=== PATIENT | female | born 1985 | race African-American/Black ===

== ENCOUNTER 2024-05-03 10:22 | Emergency (ER) | payer OTHER, SELFPAY ==
[2024-05-03 10:26] VITALS: BP 135/99; PULSE 87; RESP 17; TEMP 36.6; O2SAT 99
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
[2024-05-03] MEDS: IBUPROFEN 400 MG TABLET PO (10:48)
[2024-05-03] MEDS: ACETAMINOPHEN 325 MG TABLET 650 MG PO (10:48)
[2024-05-03] MEDS: LIDOCAINE 5% PATCH 1 PATCH TRANSDERM (10:49)
[2024-05-03 11:48] VITALS: BP 147/74; PULSE 78; RESP 18; O2SAT 100
== END 2024-05-03 11:49 | disposition home or self-care (01) ==
LOC: ANHED 11:09
PROVIDERS: Emergency Provider Emergency Medicine
DX: S39.012A Strain of muscle, fascia and tendon of lower back, initial encounter (principal); S43.402A Unspecified sprain of left shoulder joint, initial encounter; V89.2XXA Person injured in unspecified motor-vehicle accident, traffic, initial encounter
CPT/HCPCS: 99283; A9270